=== PATIENT | female | born 1955 | race Two or more races ===

== ENCOUNTER 2020-01-24 11:37 | Inpatient (IN) | payer OTHER, MEDICAID ==
[~2020-01-24] VITALS: Ht 160 cm; Wt 70.3 kg
[2020-01-24 12:46] LABS: Basophils # (auto) 0.1 10 ^3/uL (0-0.2); Basophils % (auto) 0.6 % (0.0-2.0); Eosinophils # (auto) 0 10 ^3/uL (0-0.8); Eosinophils % (auto) 0.4 % (0.0-7.0); Hematocrit 46.7 % (36.0-46.0); Hemoglobin 15.5 g/dL (12.2-16.2); Lymphocytes # (auto) 1.1 10 ^3/uL (0.4-5.4); Lymphocytes % (auto) 12.2 % (10.0-50.0); Mean Corpuscular Hemoglobin 29.8 pg (28.0-32.0); Mean Corpuscular Hgb Conc. 33.3 g/dL (32.0-36.0); Mean Corpuscular Volume 89.4 fL (80.0-100.0); Monocytes # (auto) 0.5 10 ^3/uL (0-1.3); Monocytes % (auto) 5.4 % (0.0-12.0); Neutrophils # (auto) 7.5 10 ^3/uL (1.6-8.6); Neutrophils % (auto) 81.4 % (37.0-80.0); Nucleated Red Blood Cells % 0.1 %; Platelet Count (auto) 226 10^3/uL (140-450); Red Blood Cells 5.23 10^6/uL (4.0-5.20); Red Cell Distribution Width 14.2 % (11.8-14.3); White Blood Cell 9.2 10^3/uL (4.4-10.8)
[2020-01-24 12:55] LABS: Albumin 3.8 g/dL (3.4-5.0); Calcium 8.9 mg/dL (8.5-10.1); Potassium 3.4 mmol/L (3.5-5.1)
[2020-01-24 13:00] LABS: BUN/Creatinine Ratio 17.1; Bilirubin, Total 0.4 mg/dL (0.2-1.0); Total Protein 7.9 g/dL (6.4-8.2)
[2020-01-24 13:24] LABS: Urine Bacteria NONE SEEN /hpf (None Seen); Urine Blood TRACE /uL (Negative); Urine Specific Gravity 1.003 (1.001-1.035); Urine WBC <1 /hpf (0 - 5)
[2020-01-24] MEDS ORDERED: cloNIDine HCL 0.1 MG TAB PO ONE (13:30)
[2020-01-24] MEDS ORDERED: ASPirin-EC 81 mg tab PO ONE (14:30)
[2020-01-24] MEDS ORDERED: NITROGLYCERIN 0.4 MG SL TAB SL PRN (15:30)
[2020-01-24] MEDS ORDERED: HYDROcodone-ACET 5/325MG TAB PO PRN (15:30)
[2020-01-24] MEDS ORDERED: MORPHINE SULF INJ 2 MG/ML SYRINGE 1ML IV PRN ×2 (15:30)
[2020-01-24] MEDS ORDERED: ONDANSETRON HCL 4 MG/2 ML VIAL IV PRN (15:30)
[2020-01-24] MEDS ORDERED: POTASSIUM EFFERVESENT TAB 25 MEQ PO ONE (15:45)
--- NOTE | 2020-01-24 16:26 | NUR ---
Telemetry admit from [facility] admitted to Telemetry unit after SBAR received from Satish BLOUNT RN. Patient oriented to TANVI MEJIA RN primary RN, unit, 298 room,b bed, and unit policies regarding patient care and visiting hours. Patient now on continuous telemetry monitoring, tele box #65 and telemetry reading on arrival to unit is sr 73. Patient weighed by bedscale and encouraged to call if they need something. All questions and concerns addressed, patient verbalized understanding.
[2020-01-24 17:03] VITALS: BP 146/90
[2020-01-24] MEDS ORDERED: NIFE1TAB31 PO (17:39)
[2020-01-24] MEDS ORDERED: CHOL200029 PO (17:39)
[2020-01-24] MEDS ORDERED: FLUD0.1T2 PO (17:39)
[2020-01-24] MEDS ORDERED: ENAL2.5T PO (17:39)
[2020-01-24] MEDS ORDERED: HYDR10T PO (17:39)
[2020-01-24] MEDS ORDERED: PANT40TA2 PO (17:39)
--- NOTE | 2020-01-24 20:00 | NUR ---
Opening Shift Note Assumed care of patient, awake and alert. No S/S of distress/SOB or pain. Instructed on POC and to call for assist PRN, will continue to monitor for changes Q1hr and PRN.
[2020-01-24] MEDS: METOPROLOL TARTRATE 25 MG TAB PO SCH (21:55)
[2020-01-24] MEDS: ATORVASTATIN 20 MG TAB PO SCH (21:55)
[2020-01-24] MEDS: HYDROCORTISONE 10 MG TAB PO SCH (21:56)
[2020-01-24 22:43] VITALS: BP 155/98
[2020-01-24 22:48] VITALS: BP 155/98
[2020-01-25 05:14] VITALS: BP 150/91
--- NOTE | 2020-01-25 07:28 | NUR ---
Report given to Isidro Delgado, patient is resting no distress.
--- NOTE | 2020-01-25 07:35 | NUR ---
RECEIVED PATIENT FROM [facility] SHIFT RN, . PATIENT ALERT AND ORIENTED X4.. NO S/S OF DISTRESS, DENIES SOB AND PAIN AT THIS TIME. PLAN OF CARE DISCUSSED. BED IN LOW AND LOCKED POSITION WT 2 RAILS UP, CALL LIGHT AND PHONE WITHIN REACH. WILL CONTINUE TO MONITOR Q1H AND PRN.
[2020-01-25 08:00] VITALS: BP 140/90
[2020-01-25 09:00] VITALS: BP 140/90
[2020-01-25] MEDS ORDERED: PANTOPRAZOLE 40 MG TAB PO SCH (10:00)
[2020-01-25] MEDS ORDERED: cloNIDine HCL 0.1 MG TAB PO PRN (10:30)
[2020-01-25] MEDS: HYDROCORTISONE 10 MG TAB PO SCH ×2 (10:32→21:43)
[2020-01-25] MEDS: ASPirin-EC 81 mg tab PO SCH (10:33)
[2020-01-25] MEDS: METOPROLOL TARTRATE 25 MG TAB PO SCH ×2 (10:35→21:44)
[2020-01-25] MEDS: LISINOPRIL 10 MG TAB PO SCH (10:36)
[2020-01-25] MEDS: FLUDROCORTISONE ACETATE 0.1 MG TAB PO SCH (10:37)
[2020-01-25 13:02] VITALS: BP 160/95
[2020-01-25] MEDS: hydrALAZINE HCL 20 MG/ML VL IV PRN (13:36)
--- NOTE | 2020-01-25 13:36 | NUR ---
HYDRALAZINE 10MG (0.5ML) GIVEN TO PATIENT FOR BP OF 160/95. PATIENT RESTING IN BED, DENIES ANY DISCOMFORT AT THIS TIME. WILL CONTINUE TO MONITOR Q1HR AND PRN
[2020-01-25 17:00] VITALS: BP 142/89
[2020-01-25] MEDS: ATORVASTATIN 20 MG TAB PO SCH (21:43)
[2020-01-25] MEDS ORDERED: LISINOPRIL 20 MG TAB PO ONE (22:00)
--- NOTE | 2020-01-25 22:02 | NUR ---
Dr. Waller said to increase the lisinopril to 40mg.p.o daily start tomorrow.
--- NOTE | 2020-01-25 22:02 | NUR ---
at bedside. MD Dr. Waller at bedside for evaluation for cardiology consult. Further orders received and carried out, to give lisinopril 20mg.p.o x one now and Pepcid 20mg.p.o. b.i.d.
[2020-01-25] MEDS: FAMOTIDINE 20 MG TAB PO SCH (22:13)
[2020-01-25 22:58] VITALS: BP 155/90
[2020-01-26] MEDS: hydrALAZINE HCL 20 MG/ML VL IV PRN (05:35)
[2020-01-26 05:41] VITALS: BP 155/96
[2020-01-26 05:41] LABS: Basophils # (auto) 0.1 10 ^3/uL (0-0.2); Basophils % (auto) 0.8 % (0.0-2.0); Eosinophils # (auto) 0 10 ^3/uL (0-0.8); Eosinophils % (auto) 0.5 % (0.0-7.0); Hematocrit 42.2 % (36.0-46.0); Lymphocytes # (auto) 1.4 10 ^3/uL (0.4-5.4); Lymphocytes % (auto) 16.8 % (10.0-50.0); Mean Corpuscular Hgb Conc. 33.2 g/dL (32.0-36.0); Mean Corpuscular Volume 90.3 fL (80.0-100.0); Monocytes # (auto) 0.6 10 ^3/uL (0-1.3); Monocytes % (auto) 7.1 % (0.0-12.0); Neutrophils # (auto) 6.4 10 ^3/uL (1.6-8.6); Neutrophils % (auto) 74.8 % (37.0-80.0); Nucleated Red Blood Cells % 0.1 %; Platelet Count (auto) 209 10^3/uL (140-450); Red Blood Cells 4.67 10^6/uL (4.0-5.20); Red Cell Distribution Width 14.4 % (11.8-14.3); White Blood Cell 8.6 10^3/uL (4.4-10.8)
[2020-01-26 05:58] LABS: Calcium 8.6 mg/dL (8.5-10.1); Potassium 3.9 mmol/L (3.5-5.1)
[2020-01-26 06:06] LABS: BUN/Creatinine Ratio 21.7
--- NOTE | 2020-01-26 07:10 | NUR ---
Report given to Isidro De Dios , patient is resting no distress.
--- NOTE | 2020-01-26 08:00 | NUR ---
Opening Shift Note Assumed care of patient, awake, alert, and oriented. No S/S of distress/SOB or pain. Bed in lowest/locked position, bed rails up x2, call light within reach. Instructed on POC and to call for assist PRN. Will continue to monitor for changes Q1hr and PRN.
[2020-01-26 09:00] VITALS: BP 146/93
--- NOTE | 2020-01-26 09:30 | NUR ---
PAIN PATIENT C/O HEADACHE 12/08, [facility]. WILL MEDICATE PER MD ORDERS
[2020-01-26] MEDS: ACETAMINOPHEN 500 MG TAB PO PRN ×2 (09:43→21:31)
[2020-01-26] MEDS: ASPirin-EC 81 mg tab PO SCH (09:43)
[2020-01-26] MEDS: FAMOTIDINE 20 MG TAB PO SCH ×2 (09:44→21:32)
[2020-01-26] MEDS: HYDROCORTISONE 10 MG TAB PO SCH ×2 (09:44→21:32)
[2020-01-26] MEDS: FLUDROCORTISONE ACETATE 0.1 MG TAB PO SCH (09:44)
[2020-01-26] MEDS: METOPROLOL TARTRATE 25 MG TAB PO SCH (09:45)
[2020-01-26] MEDS: LISINOPRIL 20 MG TAB PO SCH (09:46)
[2020-01-26] MEDS: LISINOPRIL 10 MG TAB PO SCH (09:47)
[2020-01-26 13:00] VITALS: BP 146/76
--- NOTE | 2020-01-26 13:37 | NUR ---
MD ROUNDS DR HUNTER AT BEDSIDE DISCUSSING POC WITH PATIENT. NO NEW ORDER AT THIS TIME. WILL CONTINUE TO MONITOR
[2020-01-26] MEDS ORDERED: ACETAMINOPHEN 325 MG TAB PO PRN (13:45)
[2020-01-26 17:00] VITALS: BP 143/82
[2020-01-26 21:19] VITALS: BP 155/98
--- NOTE | 2020-01-26 21:31 | NUR ---
PAIN PATIETN S/O 8/ HEADACHE BUT REQUESTING TYLENOL 500MG PO PERSCRIBED. PATIENT VERBALIZED UNDERSTANDING NO QEUSTIONS ASKED. ADMINSITERED TYLENOL 500MG PO PRESCRIBED. WILL CONTINUE TO MONITOR PATIENT.
[2020-01-26] MEDS: ATORVASTATIN 20 MG TAB PO SCH (21:32)
[2020-01-26] MEDS: METOPROLOL TARTRATE 50 MG TAB PO SCH (21:33)
[2020-01-27 05:13] VITALS: BP 142/93
[2020-01-27] MEDS: ACETAMINOPHEN 500 MG TAB PO PRN (05:40)
[2020-01-27 05:49] LABS: Basophils # (auto) 0 10 ^3/uL (0-0.2); Basophils % (auto) 0.5 % (0.0-2.0); Eosinophils # (auto) 0 10 ^3/uL (0-0.8); Eosinophils % (auto) 0.2 % (0.0-7.0); Hematocrit 42.8 % (36.0-46.0); Hemoglobin 14.4 g/dL (12.2-16.2); Lymphocytes # (auto) 1.2 10 ^3/uL (0.4-5.4); Lymphocytes % (auto) 12.9 % (10.0-50.0); Mean Corpuscular Hemoglobin 30.4 pg (28.0-32.0); Mean Corpuscular Hgb Conc. 33.6 g/dL (32.0-36.0); Mean Corpuscular Volume 90.5 fL (80.0-100.0); Monocytes # (auto) 0.6 10 ^3/uL (0-1.3); Monocytes % (auto) 6.1 % (0.0-12.0); Neutrophils # (auto) 7.7 10 ^3/uL (1.6-8.6); Neutrophils % (auto) 80.3 % (37.0-80.0); Nucleated Red Blood Cells % 0.1 %; Platelet Count (auto) 199 10^3/uL (140-450); Red Blood Cells 4.74 10^6/uL (4.0-5.20); Red Cell Distribution Width 14.3 % (11.8-14.3); White Blood Cell 9.6 10^3/uL (4.4-10.8)
[2020-01-27 06:19] LABS: Potassium 4.2 mmol/L (3.5-5.1)
[2020-01-27 06:33] LABS: BUN/Creatinine Ratio 21.7; Calcium 8.5 mg/dL (8.5-10.1)
[2020-01-27] MEDS: FAMOTIDINE 20 MG TAB PO SCH (08:59)
[2020-01-27] MEDS: ASPirin-EC 81 mg tab PO SCH (08:59)
[2020-01-27] MEDS: METOPROLOL TARTRATE 50 MG TAB PO SCH (08:59)
[2020-01-27] MEDS: HYDROCORTISONE 10 MG TAB PO SCH (08:59)
[2020-01-27 09:00] VITALS: BP 163/94
[2020-01-27] MEDS: FLUDROCORTISONE ACETATE 0.1 MG TAB PO SCH (09:00)
[2020-01-27] MEDS: LISINOPRIL 20 MG TAB PO SCH (09:00)
[2020-01-27 13:04] VITALS: BP 128/74
[2020-01-27] MEDS ORDERED: ENAL20TA93 PO (13:50)
[2020-01-27] MEDS ORDERED: MET50T PO (13:50)
--- NOTE | 2020-01-27 16:00 | NUR ---
LAB TIP OF PATIENT'S RIGHT UPPER CHEST CENTRAL LINE SENT TO LAB FOR CULTURE PER DR GODDARD Addendum: 01/27/20 at 1639 by PETRA GIBBS RN RN WRONG PATIENTDave ISSA
--- NOTE | 2020-01-27 17:08 | NUR ---
Discharge instructions given as ordered. Encourage to follow up with PMD as instructed. All questions and concerns addressed. Patient verbalized understanding. Home medications held in Pharmacy returned to patient, and needed vaccines given. IV removed with catheter intact, pressure dressing applied. Telemetry unit returned to ICU. Patient taken to vehicle via wheelchair with all personal belongings, accompanied by staff . No distress noted at time of departure.
[2020-01-27 17:12] VITALS: BP 149/83
== END 2020-01-27 17:10 | disposition home or self-care (01) | DRG 281 ==
LOC: ER 11:37 → TELE 11:38 → TELE-WESTW 16:27
PROVIDERS: ADMIT Nurse Practitioner Acute Care; ATTEND Internal Medicine
DX: I16.1 Hypertensive emergency (principal); I21.A1 Myocardial infarction type 2; I50.32 Chronic diastolic (congestive) heart failure; E27.1 Primary adrenocortical insufficiency; E87.6 Hypokalemia; E78.5 Hyperlipidemia, unspecified; K21.9 Gastro-esophageal reflux disease without esophagitis; I11.0 Hypertensive heart disease with heart failure; Z79.52 Long term (current) use of systemic steroids; Z79.82 Long term (current) use of aspirin; Z79.899 Other long term (current) drug therapy; Z82.49 Family history of ischemic heart disease and other diseases of the circulatory system
CPT/HCPCS: 36415; 70450; 71045; 72125; 80048; 80053; 81001; 82088; 82533; 83735; 83880; 84443; 84484; 85025; 86141; 93005; 93306; G0378

== ENCOUNTER 2021-04-16 20:18 | Inpatient (IN) | payer OTHER, MEDICAID ==
[~2021-04-16] VITALS: Ht 160 cm; Wt 81.8 kg
[~2021-04-16 20:18] MED LIST: CHOL200029 PO; ENAL20TA93 PO; FLUD0.1T2 PO; HYDR10T PO; MET50T PO; PANT40TA2 PO
[2021-04-16 22:19] LABS: Basophils # (auto) 0.1 10 ^3/uL (0-0.2); Basophils % (auto) 0.9 % (0.0-2.0); Eosinophils # (auto) 0.1 10 ^3/uL (0-0.8); Eosinophils % (auto) 0.7 % (0.0-7.0); Hematocrit 44.8 % (36.0-46.0); Hemoglobin 15.4 g/dL (12.2-16.2); Lymphocytes # (auto) 1.5 10 ^3/uL (0.4-5.4); Lymphocytes % (auto) 17.1 % (10.0-50.0); Mean Corpuscular Hemoglobin 29.8 pg (28.0-32.0); Mean Corpuscular Hgb Conc. 34.5 g/dL (32.0-36.0); Mean Corpuscular Volume 86.4 fL (80.0-100.0); Monocytes # (auto) 0.8 10 ^3/uL (0-1.3); Monocytes % (auto) 8.6 % (0.0-12.0); Neutrophils # (auto) 6.4 10 ^3/uL (1.6-8.6); Neutrophils % (auto) 72.7 % (37.0-80.0); Nucleated Red Blood Cells % 0.1 %; Red Blood Cells 5.18 10^6/uL (4.0-5.20); Red Cell Distribution Width 14.3 % (11.8-14.3); White Blood Cell 8.8 10^3/uL (4.4-10.8)
[2021-04-16 22:37] LABS: Albumin 3.8 g/dL (3.4-5.0); BUN/Creatinine Ratio 16.4
[2021-04-16 22:40] LABS: Bilirubin, Total 0.3 mg/dL (0.2-1.0); Total Protein 7.4 g/dL (6.4-8.2)
[2021-04-16] MEDS ORDERED: SODIUM CHLORIDE 0.9% 1,000 ML IV ONE (23:00)
[2021-04-16] MEDS ORDERED: ASPirin 81 mg TAB PO ONE (23:15)
[2021-04-17 00:30] LABS: Urine WBC None Seen /hpf (0 - 5)
[2021-04-17 00:39] LABS: Urine Bacteria NONE SEEN /hpf (None Seen); Urine Blood Negative /uL (Negative); Urine Specific Gravity 1.001 (1.001-1.035)
[2021-04-17] MEDS ORDERED: POTASSIUM CHL 20 Meq TABLET PO ONE (01:00)
[2021-04-17] MEDS ORDERED: ACETAMINOPHEN 325 MG TAB PO PRN (01:30)
[2021-04-17] MEDS ORDERED: HYDROcodone-ACET 5/325MG TAB PO PRN (01:30)
[2021-04-17] MEDS ORDERED: hydrALAZINE HCL 20 MG/ML VL IV PRN (01:30)
[2021-04-17] MEDS ORDERED: NITROGLYCERIN 0.4 MG SL TAB SL PRN (01:30)
[2021-04-17] MEDS ORDERED: POTASSIUM CHL 20MEQ/100ML 100 ML IV ONE (01:30)
[2021-04-17] MEDS ORDERED: ONDANSETRON HCL 4 MG/2 ML VIAL IV PRN (01:30)
[2021-04-17] MEDS ORDERED: CHOLECALCIFEROL (VITD3) 2,000 UNIT CAP/TAB PO ONE (01:45)
[2021-04-17 04:20] VITALS: BP 136/84
[2021-04-17 05:00] VITALS: BP 136/84
[2021-04-17] MEDS ORDERED: AMLO-489 PO (05:10)
[2021-04-17 08:15] LABS: Basophils # (auto) 0 10 ^3/uL (0-0.2); Basophils % (auto) 0.6 % (0.0-2.0); Eosinophils # (auto) 0.1 10 ^3/uL (0-0.8); Eosinophils % (auto) 0.7 % (0.0-7.0); Hematocrit 39.9 % (36.0-46.0); Hemoglobin 13.6 g/dL (12.2-16.2); Lymphocytes # (auto) 1.6 10 ^3/uL (0.4-5.4); Lymphocytes % (auto) 19.7 % (10.0-50.0); Mean Corpuscular Hemoglobin 29.3 pg (28.0-32.0); Mean Corpuscular Hgb Conc. 34.1 g/dL (32.0-36.0); Mean Corpuscular Volume 86.1 fL (80.0-100.0); Monocytes # (auto) 0.6 10 ^3/uL (0-1.3); Monocytes % (auto) 7.2 % (0.0-12.0); Neutrophils # (auto) 5.8 10 ^3/uL (1.6-8.6); Neutrophils % (auto) 71.8 % (37.0-80.0); Red Blood Cells 4.64 10^6/uL (4.0-5.20); White Blood Cell 8.1 10^3/uL (4.4-10.8)
[2021-04-17 08:33] LABS: BUN/Creatinine Ratio 18.4; Potassium 3.7 mmol/L (3.5-5.1)
[2021-04-17 09:00] VITALS: BP 135/77
[2021-04-17] MEDS ORDERED: amLODIPine BESYLATE 5 MG TAB PO SCH (10:00)
[2021-04-17] MEDS ORDERED: HYDROCORTISONE 10 MG TAB PO SCH (10:00)
[2021-04-17] MEDS ORDERED: METOPROLOL TARTRATE 50 MG TAB PO SCH (10:00)
[2021-04-17] MEDS ORDERED: FLUDROCORTISONE ACETATE 0.1 MG TAB PO SCH (10:00)
[2021-04-17] MEDS ORDERED: ENALAPRIL MALEATE 10 MG TAB PO SCH (10:00)
[2021-04-17] MEDS: CHOLECALCIFEROL (VITD3) 2,000 UNIT CAP/TAB PO SCH ×2 (10:32→14:41)
[2021-04-17 13:00] VITALS: BP 133/78
[2021-04-17 18:04] VITALS: BP 135/77
[2021-04-18 10:40] LABS: Free T4 (Free Thyroxine) 0.91 ng/dL (0.89-1.76); T3 Total 0.92 ng/mL (0.60-1.81)
[2021-04-18 10:41] LABS: Free T3 3.17 pg/mL (2.3-4.2)
== END 2021-04-17 18:50 | disposition home or self-care (01) | DRG 281 ==
LOC: ER 20:23 → TELE 04-17 01:25 → TELE-EAST 04-17 03:20
PROVIDERS: ADMIT Internal Medicine; ATTEND Internal Medicine
DX: I21.4 Non-ST elevation (NSTEMI) myocardial infarction (principal); E27.1 Primary adrenocortical insufficiency; R51.9 Headache, unspecified; I10 Essential (primary) hypertension; Z20.822 Contact with and (suspected) exposure to COVID-19; R77.8 Other specified abnormalities of plasma proteins; R79.89 Other specified abnormal findings of blood chemistry; R94.6 Abnormal results of thyroid function studies; E78.5 Hyperlipidemia, unspecified; E87.6 Hypokalemia; K21.9 Gastro-esophageal reflux disease without esophagitis; Z82.49 Family history of ischemic heart disease and other diseases of the circulatory system; Z88.0 Allergy status to penicillin; Z98.51 Tubal ligation status; Z83.3 Family history of diabetes mellitus; Z79.899 Other long term (current) drug therapy; I16.0 Hypertensive urgency
CPT/HCPCS: 36415; 70450; 71045; 80048; 80053; 81001; 83605; 83735; 83880; 84439; 84443; 84480; 84481; 84484; 85025; 87426; 93005; 93306; 96360; G0378; J3480

== ENCOUNTER 2021-11-02 09:03 | Inpatient (IN) | payer OTHER, MEDICAID ==
[~2021-11-02] VITALS: Ht 160 cm; Wt 73.1 kg
[~2021-11-02 09:03] MED LIST changes: +AMLO-489 PO; -PANT40TA2 PO
[2021-11-02 09:34] LABS: Basophils # (auto) 0 10 ^3/uL (0-0.2); Basophils % (auto) 0.6 % (0.0-2.0); Eosinophils # (auto) 0.1 10 ^3/uL (0-0.8); Eosinophils % (auto) 0.7 % (0.0-7.0); Hematocrit 45.6 % (36.0-46.0); Hemoglobin 15.3 g/dL (12.2-16.2); Lymphocytes # (auto) 2.1 10 ^3/uL (0.4-5.4); Lymphocytes % (auto) 28.2 % (10.0-50.0); Mean Corpuscular Hemoglobin 29.2 pg (28.0-32.0); Mean Corpuscular Hgb Conc. 33.4 g/dL (32.0-36.0); Mean Corpuscular Volume 87.4 fL (80.0-100.0); Monocytes # (auto) 0.6 10 ^3/uL (0-1.3); Monocytes % (auto) 8.6 % (0.0-12.0); Neutrophils # (auto) 4.6 10 ^3/uL (1.6-8.6); Neutrophils % (auto) 61.9 % (37.0-80.0); Nucleated Red Blood Cells % 0.1 %; Red Blood Cells 5.22 10^6/uL (4.0-5.20); Red Cell Distribution Width 14.2 % (11.8-14.3); White Blood Cell 7.4 10^3/uL (4.4-10.8)
[2021-11-02 09:58] LABS: Potassium 3.3 mmol/L (3.5-5.1)
[2021-11-02 10:08] LABS: Albumin 3.8 g/dL (3.4-5.0); BUN/Creatinine Ratio 12.2; Bilirubin, Total 0.4 mg/dL (0.2-1.0); Calcium 9.1 mg/dL (8.5-10.1); Total Protein 7.4 g/dL (6.4-8.2)
[2021-11-02 10:08] LABS: Urine Bacteria FEW /hpf (None Seen); Urine Blood Negative /uL (Negative); Urine Specific Gravity 1.008 (1.001-1.035); Urine WBC 1 /hpf (0 - 5)
[2021-11-02] MEDS ORDERED: POTASSIUM EFFERVESENT TAB 25 MEQ PO ONE (10:45)
[2021-11-02] MEDS ORDERED: ASPirin 81 mg TAB PO ONE (10:45)
[2021-11-02] MEDS ORDERED: cloNIDine HCL 0.1 MG TAB PO ONE (10:45)
[2021-11-02] MEDS ORDERED: NITROGLYCERIN 0.4 MG SL TAB SL PRN (14:15)
[2021-11-02] MEDS ORDERED: MORPHINE SULFATE INJECTION 2 MG/ML SYRG IV PRN (14:15)
[2021-11-02] MEDS ORDERED: hydrALAZINE HCL 20 MG/ML VL IV ONE (16:30)
[2021-11-02] MEDS ORDERED: hydrALAZINE HCL 20 MG/ML VL IV PRN (16:30)
[2021-11-02 16:43] VITALS: BP 144/85
[2021-11-02] MEDS ORDERED: METO-289 PO (16:58)
[2021-11-02] MEDS ORDERED: PANT1INJ3 PO (16:58)
[2021-11-02] MEDS ORDERED: PANT40TA2 PO (16:59)
[2021-11-02 17:00] VITALS: BP 144/85
[2021-11-02] MEDS ORDERED: METOPROLOL SUCCINATE XL 50 MG TAB PO ONE (18:15)
[2021-11-02] MEDS: ACETAMINOPHEN 325 MG TAB PO PRN (18:47)
[2021-11-02] MEDS ORDERED: SODIUM CHLORIDE 0.9% 1,000 ML IV SCH (19:45)
[2021-11-02] MEDS ORDERED: LABETALOL HCL 5 MG/ML 4ML SYRINGE IV PRN (19:45)
[2021-11-02 20:00] VITALS: BP 134/80
[2021-11-02] MEDS ORDERED: MORPHINE SULFATE 4 MG/ML SYR/VIAL IV PRN (20:00)
[2021-11-02] MEDS ORDERED: ONDANSETRON HCL 4 MG/2 ML VIAL IV PRN ×2 (20:00→22:45)
[2021-11-02] MEDS ORDERED: DOCUSATE SOD 100 MG CAP PO PRN (20:00)
[2021-11-02 20:48] LABS: Cholesterol 173 mg/dL (< 200)
[2021-11-02 20:50] LABS: Creatine Kinase IFCC 32 U/L (26-192); HDL Cholesterol 43 mg/dL (40-59); LDL Cholesterol 104 mg/dL (< 100); Triglycerides 171 mg/dL (< 150)
[2021-11-02 20:54] LABS: Alcohol, Urine < 3.0 mg/dL (0-10); Amphetamine Screen, Urine NEGATIVE (NEGATIVE); Barbiturate Scree,Urine NEGATIVE (NEGATIVE); Benzodiazephine Screen, Urine NEGATIVE (NEGATIVE); Cannabinoid Screen, Urine NEGATIVE (NEGATIVE); Cocaine Screen, Urine NEGATIVE (NEGATIVE); Opiate Scree,Urine NEGATIVE (NEGATIVE); Phencyclidine Screen, Urine NEGATIVE (NEGATIVE)
[2021-11-02 22:00] VITALS: BP 134/80
[2021-11-02] MEDS ORDERED: HYDROCORTISONE 10 MG TAB PO SCH (22:00)
[2021-11-02] MEDS ORDERED: ENOXAPARIN SOD 40 MG/0.4 ML SYRINGE SC SCH (22:00)
[2021-11-02] MEDS ORDERED: ATORVASTATIN 20 MG TAB PO SCH (22:00)
[2021-11-02] MEDS ORDERED: NIFEdipine ER 30 MG TAB PO ONE (22:30)
[2021-11-02] MEDS ORDERED: levoFLOXacin 500MG 100 ML IV ONE (22:30)
[2021-11-02] MEDS ORDERED: FAMOTIDINE (10MG/ML) 2ML VL IV ONE (22:30)
[2021-11-02] MEDS ORDERED: POTASSIUM CHL 20 Meq TABLET PO ONE (22:30)
[2021-11-02] MEDS: RIVAROXABAN 10 MG TAB PO SCH (23:27)
[2021-11-03 05:00] VITALS: BP 122/72
[2021-11-03 07:13] LABS: Basophils # (auto) 0.1 10 ^3/uL (0-0.2); Basophils % (auto) 1.2 % (0.0-2.0); Eosinophils # (auto) 0.1 10 ^3/uL (0-0.8); Eosinophils % (auto) 1.4 % (0.0-7.0); Hematocrit 43.1 % (36.0-46.0); Hemoglobin 14.2 g/dL (12.2-16.2); Lymphocytes # (auto) 1.7 10 ^3/uL (0.4-5.4); Lymphocytes % (auto) 26.7 % (10.0-50.0); Mean Corpuscular Hemoglobin 28.8 pg (28.0-32.0); Mean Corpuscular Volume 87.4 fL (80.0-100.0); Monocytes # (auto) 0.6 10 ^3/uL (0-1.3); Monocytes % (auto) 9.9 % (0.0-12.0); Neutrophils # (auto) 3.8 10 ^3/uL (1.6-8.6); Neutrophils % (auto) 60.8 % (37.0-80.0); Nucleated Red Blood Cells % 0.2 %; Red Blood Cells 4.93 10^6/uL (4.0-5.20); White Blood Cell 6.2 10^3/uL (4.4-10.8)
[2021-11-03 07:16] LABS: INR 1.25 (0.9-1.15); Partial Thromboplastin Time 36.5 sec (23.6-33.0)
[2021-11-03 07:22] LABS: Potassium 3.7 mmol/L (3.5-5.1)
[2021-11-03 07:30] LABS: Albumin 3.1 g/dL (3.4-5.0); BUN/Creatinine Ratio 11.5; Bilirubin, Total 0.5 mg/dL (0.2-1.0); Calcium 8.7 mg/dL (8.5-10.1); Magnesium 3.2 mg/dL (1.6-2.6); Phosphorus 3.2 mg/dL (2.5-4.90); Total Protein 6.4 g/dL (6.4-8.2); Uric Acid 4.4 mg/dL (2.6-6.0)
[2021-11-03 08:00] VITALS: BP 134/80
[2021-11-03 09:00] VITALS: BP 149/92
[2021-11-03] MEDS ORDERED: GADOTERATE MEG 7.5 MMOL/15ml INJ (0.5MMOL/ml) IV ONE (09:49)
[2021-11-03] MEDS: RIVAROXABAN 10 MG TAB PO SCH ×2 (10:00→21:29)
[2021-11-03] MEDS ORDERED: FLUDROCORTISONE ACETATE 0.1 MG TAB PO SCH (10:00)
[2021-11-03] MEDS ORDERED: POTASSIUM CHL 20 Meq TABLET PO SCH (10:00)
[2021-11-03] MEDS: ASPirin 81 mg TAB PO SCH (11:00)
[2021-11-03] MEDS: CHOLECALCIFEROL (VITD3) 2,000 UNIT CAP/TAB PO SCH (11:00)
[2021-11-03] MEDS: ACETAMINOPHEN 325 MG TAB PO PRN ×2 (12:01→23:00)
[2021-11-03 13:00] VITALS: BP 144/89
[2021-11-03 16:56] VITALS: BP 137/94
[2021-11-03 21:00] VITALS: BP 156/96
[2021-11-03] MEDS ORDERED: NIFEdipine ER 30 MG TAB PO SCH (22:00)
[2021-11-03] MEDS ORDERED: METOPROLOL SUCCINATE XL 50 MG TAB PO SCH (22:00)
[2021-11-03] MEDS ORDERED: levoFLOXacin 500MG 100 ML IV SCH (22:00)
[2021-11-03] MEDS ORDERED: FAMOTIDINE (10MG/ML) 2ML VL IV SCH (22:00)
[2021-11-03] MEDS ORDERED: PANTOPRAZOLE 40 MG TAB PO SCH (22:00)
[2021-11-04 05:00] VITALS: BP 122/82
[2021-11-04 09:16] VITALS: BP 134/98
[2021-11-04] MEDS: ASPirin 81 mg TAB PO SCH (09:45)
[2021-11-04] MEDS: CHOLECALCIFEROL (VITD3) 2,000 UNIT CAP/TAB PO SCH (09:46)
[2021-11-04] MEDS: RIVAROXABAN 10 MG TAB PO SCH (09:47)
[2021-11-04] MEDS: ACETAMINOPHEN 325 MG TAB PO PRN (09:59)
[2021-11-04 13:00] VITALS: BP 118/80
[2021-11-04 13:09] VITALS: BP 134/98
== END 2021-11-04 15:00 | disposition home or self-care (01) | DRG 78 ==
LOC: ER 09:03 → TELE 14:08 → TELE-WESTW 15:40
PROVIDERS: ADMIT Hospitalist; ATTEND Internal Medicine
DX: I67.4 Hypertensive encephalopathy (principal); I16.1 Hypertensive emergency; N39.0 Urinary tract infection, site not specified; E27.40 Unspecified adrenocortical insufficiency; E27.1 Primary adrenocortical insufficiency; E88.81 Metabolic syndrome and other insulin resistance; F40.240 Claustrophobia; D35.2 Benign neoplasm of pituitary gland; E66.01 Morbid (severe) obesity due to excess calories; E87.6 Hypokalemia; Z20.822 Contact with and (suspected) exposure to COVID-19; E78.5 Hyperlipidemia, unspecified; K21.9 Gastro-esophageal reflux disease without esophagitis; H53.8 Other visual disturbances; R51.9 Headache, unspecified; I10 Essential (primary) hypertension; Z82.0 Family history of epilepsy and other diseases of the nervous system; Z68.28 Body mass index [BMI] 28.0-28.9, adult; Z88.3 Allergy status to other anti-infective agents; Z82.49 Family history of ischemic heart disease and other diseases of the circulatory system; Z83.3 Family history of diabetes mellitus; Z79.899 Other long term (current) drug therapy; Z88.0 Allergy status to penicillin
CPT/HCPCS: 36415; 70553; 80053; 80061; 80307; 81001; 82024; 82088; 82306; 82550; 83036; 83735; 83880; 84100; 84146; 84244; 84443; 84484; 84550; 85025; 85379; 85610; 85730; 87040; 87086; 87426; 93005; 93306; G0378; J1956; J3490

== ENCOUNTER 2022-02-16 10:03 | Emergency (ER) | payer OTHER, MEDICAID ==
[~2022-02-16] VITALS: Ht 160 cm; Wt 68.9 kg
[~2022-02-16 10:03] MED LIST changes: -AMLO-489 PO; -FLUD0.1T2 PO; -MET50T PO; +METO-289 PO; +PANT40TA2 PO
[2022-02-16 10:04] VITALS: BP 136/102
[2022-02-16] MEDS ORDERED: ACETAMINOPHEN 500 MG TAB PO ONE (11:00)
[2022-02-16] MEDS ORDERED: ACET-1080 PO (12:13)
[2022-02-16] MEDS ORDERED: LEVO500T31 PO (12:13)
[2022-02-16] MEDS ORDERED: PRED20TA2 PO (12:18)
== END 2022-02-16 12:23 | disposition home or self-care (01) ==
LOC: ER 10:03
DX: J01.90 Acute sinusitis, unspecified (principal); M50.30 Other cervical disc degeneration, unspecified cervical region
CPT/HCPCS: 70450; 72125

== ENCOUNTER 2023-01-30 11:35 | Inpatient (IN) | payer OTHER, MEDICAID ==
[~2023-01-30] VITALS: Ht 160 cm; Wt 69.0 kg
[~2023-01-30 11:35] MED LIST changes: +ACET-1080 PO; +LEVO500T31 PO; +PRED20TA2 PO
[2023-01-30] MEDS ORDERED: SODIUM CHLORIDE 0.9% 500 ML IV ONE (12:00)
[2023-01-30 12:25] LABS: Basophils # (auto) 0.1 10 ^3/uL (0-0.2); Basophils % (auto) 0.8 % (0.0-2.0); Eosinophils # (auto) 0.1 10 ^3/uL (0-0.8); Eosinophils % (auto) 0.6 % (0.0-7.0); Hemoglobin 15.1 g/dL (12.2-16.2); Lymphocytes # (auto) 1.4 10 ^3/uL (0.4-5.4); Lymphocytes % (auto) 12.7 % (10.0-50.0); Mean Corpuscular Hgb Conc. 33.6 g/dL (32.0-36.0); Mean Corpuscular Volume 86.4 fL (80.0-100.0); Monocytes # (auto) 0.8 10 ^3/uL (0-1.3); Monocytes % (auto) 6.9 % (0.0-12.0); Nucleated Red Blood Cells % 0.1 %; Red Cell Distribution Width 14.4 % (11.8-14.3); White Blood Cell 11.3 10^3/uL (4.4-10.8)
[2023-01-30 12:43] LABS: Calcium 9.8 mg/dL (8.5-10.1); Magnesium 2.3 mg/dL (1.6-2.6)
[2023-01-30 12:48] LABS: BUN/Creatinine Ratio 17.3 (10.0-20.0); Bilirubin, Total 0.5 mg/dL (0.2-1.0); Total Protein 7.2 g/dL (6.4-8.2)
[2023-01-30] MEDS ORDERED: HYDROcodone-ACET 5/325MG TAB PO PRN (17:15)
[2023-01-30] MEDS ORDERED: MORPHINE SULFATE INJ 2 MG/ml SYRG IV PRN (17:15)
[2023-01-30] MEDS: ACETAMINOPHEN 325 MG TAB PO PRN (20:21)
[2023-01-30] MEDS: SODIUM CHLORIDE 0.9% 1,000 ML IV SCH (20:22)
[2023-01-30] MEDS ORDERED: ENALAPRIL MALEATE 10 MG TAB PO SCH (22:00)
[2023-01-30] MEDS: METOPROLOL SUCCINATE XL 50 MG TAB PO SCH (23:06)
[2023-01-31 03:16] VITALS: BP_SYST 117; BP_DIAS 56; BP_DIAS 66
[2023-01-31] MEDS ORDERED: NIFE1TAB30 PO (04:29)
[2023-01-31] MEDS ORDERED: ENAL2.5T7 PO (04:30)
[2023-01-31 05:14] VITALS: BP 117/66
[2023-01-31] MEDS: SODIUM CHLORIDE 0.9% 1,000 ML IV SCH ×2 (06:35→20:03)
[2023-01-31 06:46] LABS: Urine Bacteria NONE SEEN /hpf (None Seen); Urine Blood Negative /uL (Negative); Urine Mucus FEW (None Seen); Urine Specific Gravity 1.014 (1.001-1.035); Urine WBC 2 /hpf (0 - 5)
[2023-01-31 07:38] LABS: Basophils # (auto) 0.1 10 ^3/uL (0-0.2); Basophils % (auto) 1.3 % (0.0-2.0); Eosinophils # (auto) 0.1 10 ^3/uL (0-0.8); Eosinophils % (auto) 1.3 % (0.0-7.0); Hematocrit 40.1 % (36.0-46.0); Hemoglobin 13.4 g/dL (12.2-16.2); Lymphocytes # (auto) 2.2 10 ^3/uL (0.4-5.4); Lymphocytes % (auto) 26.1 % (10.0-50.0); Mean Corpuscular Hemoglobin 29.3 pg (28.0-32.0); Mean Corpuscular Hgb Conc. 33.4 g/dL (32.0-36.0); Mean Corpuscular Volume 87.8 fL (80.0-100.0); Monocytes # (auto) 0.8 10 ^3/uL (0-1.3); Monocytes % (auto) 9.3 % (0.0-12.0); Neutrophils # (auto) 5.3 10 ^3/uL (1.6-8.6); Red Blood Cells 4.57 10^6/uL (4.0-5.20); Red Cell Distribution Width 14.4 % (11.8-14.3); White Blood Cell 8.5 10^3/uL (4.4-10.8)
[2023-01-31 07:50] LABS: Albumin 3.4 g/dL (3.4-5.0); Calcium 8.5 mg/dL (8.5-10.1)
[2023-01-31 07:55] LABS: Bilirubin, Total 0.5 mg/dL (0.2-1.0); Total Protein 6.4 g/dL (6.4-8.2)
[2023-01-31 08:55] VITALS: BP 124/74
[2023-01-31] MEDS: METOPROLOL SUCCINATE XL 50 MG TAB PO SCH (09:02)
[2023-01-31] MEDS: PANTOPRAZOLE 40 MG TAB PO SCH (09:02)
[2023-01-31] MEDS ORDERED: ENOXAPARIN SOD 40 MG/0.4 ML SYRINGE SC SCH (10:00)
[2023-01-31 12:30] VITALS: BP 137/64
[2023-01-31] MEDS ORDERED: HYDROCORTISONE 10 MG TAB PO ONE (13:15)
[2023-01-31] MEDS ORDERED: LORazepam 2MG/ML-1ML VIAL IV ONE (13:15)
[2023-01-31] MEDS: ACETAMINOPHEN 325 MG TAB PO PRN ×2 (14:47→22:00)
[2023-01-31 16:56] VITALS: BP 124/72
[2023-01-31] MEDS: HYDROCORTISONE 10 MG TAB PO SCH (21:55)
[2023-01-31 22:00] VITALS: BP 150/85
[2023-01-31] MEDS ORDERED: METOPROLOL TARTRATE 25 MG TAB PO ONE (22:30)
[2023-02-01 04:43] VITALS: BP 125/75
[2023-02-01 06:09] LABS: Anion Gap 7 (5-15); BUN/Creatinine Ratio 13.1 (10.0-20.0); Blood Urea Nitrogen 11 mg/dL (7-18); Calcium 8.8 mg/dL (8.5-10.1); Carbon Dioxide 21 mmol/L (21-32); Chloride 112 mmol/L (98-107); GFR African American 86 mL/min; GFR Non-African American 71 mL/min; Glucose 104 mg/dL (74-106); Potassium 4.1 mmol/L (3.5-5.1); Sodium 140 mmol/L (136-145)
[2023-02-01 06:11] LABS: Basophils # (auto) 0 10 ^3/uL (0-0.2); Basophils % (auto) 0.6 % (0.0-2.0); Eosinophils # (auto) 0 10 ^3/uL (0-0.8); Eosinophils % (auto) 0.6 % (0.0-7.0); Hematocrit 39.5 % (36.0-46.0); Hemoglobin 13.4 g/dL (12.2-16.2); Lymphocytes # (auto) 1.5 10 ^3/uL (0.4-5.4); Lymphocytes % (auto) 18.5 % (10.0-50.0); Mean Corpuscular Hemoglobin 29.5 pg (28.0-32.0); Mean Corpuscular Hgb Conc. 33.8 g/dL (32.0-36.0); Mean Corpuscular Volume 87.3 fL (80.0-100.0); Monocytes # (auto) 0.5 10 ^3/uL (0-1.3); Monocytes % (auto) 6.4 % (0.0-12.0); Neutrophils # (auto) 5.8 10 ^3/uL (1.6-8.6); Neutrophils % (auto) 73.9 % (37.0-80.0); Nucleated Red Blood Cells % 0.2 %; Red Blood Cells 4.53 10^6/uL (4.0-5.20); White Blood Cell 7.9 10^3/uL (4.4-10.8)
[2023-02-01 08:00] VITALS: BP 152/81
[2023-02-01 09:00] VITALS: BP 152/81
[2023-02-01] MEDS: SODIUM CHLORIDE 0.9% 1,000 ML IV SCH (09:15)
[2023-02-01] MEDS: PANTOPRAZOLE 40 MG TAB PO SCH (10:32)
[2023-02-01] MEDS: ACETAMINOPHEN 325 MG TAB PO PRN ×2 (10:32→17:58)
[2023-02-01] MEDS ORDERED: NIFEdipine ER 30 MG TAB PO ONE (12:30)
[2023-02-01] MEDS ORDERED: cefTRIAXone 1GM/50ML D5W 50 ML IV ONE ×2 (12:30→13:00)
[2023-02-01] MEDS ORDERED: ENALAPRIL MALEATE 2.5 MG TAB PO ONE (12:30)
[2023-02-01] MEDS: HYDROCORTISONE 10 MG TAB PO SCH ×2 (12:41→22:23)
[2023-02-01 13:00] VITALS: BP_SYST 154; BP_SYST 155; BP_DIAS 88; BP_DIAS 92
[2023-02-01 16:40] VITALS: BP 135/74
[2023-02-01 22:00] VITALS: BP 120/75
[2023-02-01] MEDS: METOPROLOL TARTRATE 50 MG TAB PO SCH (22:23)
[2023-02-02 05:00] VITALS: BP 124/74
[2023-02-02 08:00] VITALS: BP 134/77
[2023-02-02 08:42] VITALS: BP 134/77
[2023-02-02] MEDS ORDERED: cefTRIAXone 1GM/50ML D5W 50 ML IV SCH (09:00)
[2023-02-02] MEDS ORDERED: NIFEdipine ER 30 MG TAB PO SCH (10:00)
[2023-02-02] MEDS ORDERED: ENALAPRIL MALEATE 2.5 MG TAB PO SCH (10:00)
[2023-02-02] MEDS: METOPROLOL TARTRATE 50 MG TAB PO SCH (11:08)
[2023-02-02] MEDS: PANTOPRAZOLE 40 MG TAB PO SCH (11:09)
[2023-02-02] MEDS: HYDROCORTISONE 10 MG TAB PO SCH (11:10)
[2023-02-02] MEDS ORDERED: LEVO500T31 PO (12:43)
[2023-02-02 12:57] VITALS: BP 147/79
[2023-02-02 13:45] VITALS: BP 147/79
== END 2023-02-02 13:58 | disposition home or self-care (01) | DRG 644 ==
LOC: ER 11:35 → OVERFLOW 17:04 → WEST WING 01-31 03:09
PROVIDERS: ADMIT Nurse Practitioner Family; ATTEND Internal Medicine
DX: E27.1 Primary adrenocortical insufficiency (principal); N39.0 Urinary tract infection, site not specified; K21.9 Gastro-esophageal reflux disease without esophagitis; I10 Essential (primary) hypertension; Z20.822 Contact with and (suspected) exposure to COVID-19; E78.5 Hyperlipidemia, unspecified; E03.9 Hypothyroidism, unspecified; Z88.0 Allergy status to penicillin; Z82.49 Family history of ischemic heart disease and other diseases of the circulatory system
CPT/HCPCS: 36415; 70553; 71046; 80048; 80053; 81001; 82306; 82607; 82962; 83735; 84443; 84484; 85025; 87040; 87426; 93005; 96360; G0378; J0696

== ENCOUNTER 2024-08-12 12:32 | Emergency (ER) | payer OTHER, MEDICAID ==
[~2024-08-12] VITALS: Ht 160 cm; Wt 75.0 kg
[~2024-08-12 12:32] MED LIST changes: +ENAL1TAB42 PO; -ENAL20TA93 PO; +NIFE1TAB30 PO
--- NOTE | 2024-08-12 13:30 | ED.PDOC ---
HPI Comments 51 year old presents for evaluation regarding her elevated blood pressure Reports she was diagnosed years ago. Takes metropolol 100 mg daily, nefedipine 30 mg daily, Valsartan 80 mg Takes medications as directed Reports BP has been in the 120s and been controlled but this morning woke up with a BP of 180/100 Then she took clonidine 0.1 mg and BP 170s so she called her nurse and was advided to visit nearest ER In triage BP was 158/96 Patient feels well and in usual state of health. Chief Complaint: High Blood Pressure Time Seen by MD: 13:07 Primary Care Provider: MARIYA Reviewed Notes: Nurses Notes, Medications, Allergies Allergies: Coded Allergies: Penicillins (Verified Allergy, Unknown, 09/07/15) Home Meds Active Scripts Levofloxacin (Levaquin) 500 Mg Tab, 500 MG PO DAILY for 5 Days, #5 TAB Prov:GERI MAE MD 02/02/23 Prednisone (Prednisone) 20 Mg Tab, 60 MG PO DAILY, #15 MG Prov:STELLA SHEIKH 02/16/22 Levofloxacin (Levaquin) 500 Mg Tab, 500 MG PO DAILY for 10 Days, #10 TAB Prov:STELLA SHEIKH 02/16/22 Acetaminophen (Tylenol 8 Hour Arthritis) 650 Mg Tab, 650 MG PO TID, #30 TAB Prov:STELLA SHEIKH 02/16/22 Reported Medications Enalapril Maleate (Enalapril Maleate) 2.5 Mg Tab, 2.5 MG PO DAILY for 30 Days, MG 01/31/23 Nifedipine (Nifedipine Er) 60 Mg Tab, 60 MG PO DAILY, TAB 01/31/23 Pantoprazole Sodium Sesquihydr (Protonix) 40 Mg Tab, 40 MG PO DAILY, #30 TAB 11/02/21 Metoprolol Succinate (Metoprolol Succinate Er) 50 Mg Tab, 50 MG PO BID, TAB 11/02/21 Hydrocortisone Base (CORTEF) 10 Mg Tab, 20 MG PO BID, TAB 01/24/20 Cholecalciferol (VITAMIN D3) 2,000 Unit Chw, 2000 UNIT PO, TAB.CHEW 01/24/20 Information Source: Patient Mode of Arrival: EMS Past Medical History PAST MEDICAL HISTORY: GERD, High Lipids, HTN, Thyroid Surgical History: BTL NURSE LICENSED PRACTICAL History: No Pertinent NURSE LICENSED PRACTICAL History Family History Family History: Reviewed,noncontributory to illness, Family hx of HTN Social History Smoker: Non-Smoker Alcohol: Denies ETOH Use Drugs: Denies Drug Use Lives In: Home All Other Systems: Reviewed and Negative (Per HPI) Physical Exam General Appearance: No Apparent Distress, Normal HEENT: Normal ENT Inspection, Pharynx Normal, TMs Normal Neck: Full Range of Motion, Non-Tender, Normal, Normal Inspection Respiratory: Chest Non-Tender, Lungs Clear, No Accessory Muscle Use, No Respiratory Distress, Normal Breath Sounds Cardiovascular: No Edema, No JVD, No Murmur, No Gallop, Normal Peripheral Pulses, Regular Rate/Rhythm Breast Exam: Deferred Gastrointestinal: No Organomegaly, Non Tender, No Pulsatile Mass, Normal Bowel Sounds, Soft Genitalia: Deferred Pelvic: Deferred Rectal: Deferred Extremities: No calf tenderness, Normal capillary refill, Normal inspection, Normal range of motion, Non-tender, No pedal edema Musculoskeletal : Apperance: Normal Neurologic: Alert, wastewater treatment engineer II-XII nml as Tested, No Motor Deficits, Normal Affect, Normal Mood, No Sensory Deficits Cerebellar Function: Normal Reflexes: Normal Skin: Dry, Normal Color, Warm Lymphatic: No Adenopathy Was a procedure done? Was a procedure done?: No CP Differential Dx Differential Diagnosis: Other Differential Diagnosis: CHF, Medical NonCompliance X-Ray, Labs, Meds, VS Vital Signs Date Time Temp Pulse Resp B/P (MAP) Pulse Ox O2 Delivery O2 Flow Rate FiO2 08/12/24 14:47 97.7 82 16 142/87 (105) 99 97.7 08/12/24 13:20 98.0 65 16 158/96 (116) 96 98.0 08/12/24 13:20 65 18 98 Room Air 08/12/24 12:45 98.0 6 18 152/91 (111) 95 Lab Test 08/12/24 13:37 Range/Units White Blood Count 9.9 4.4-10.8 10^3/uL Red Blood Count 5.00 4.0-5.20 10^6/uL Hemoglobin 14.5 12.2-16.2 g/dL Hematocrit 43.3 36.0-46.0 % Mean Corpuscular Volume 86.5 80.0-100.0 fL Mean Corpuscular Hemoglobin 29.0 28.0-32.0 pg Mean Corpuscular Hemoglobin Concent 33.5 32.0-36.0 g/dL Red Cell Distribution Width 14.8 H 11.8-14.3 % Platelet Count 192 140-450 10^3/uL Mean Platelet Volume 9.3 6.9-10.8 fL Neutrophils (%) (Auto) 81.3 H 37.0-80.0 % Lymphocytes (%) (Auto) 13.3 10.0-50.0 % Monocytes (%) (Auto) 4.5 0.0-12.0 % Eosinophils (%) (Auto) 0.3 0.0-7.0 % Basophils (%) (Auto) 0.6 0.0-2.0 % Neutrophils # (Auto) 8.0 1.6-8.6 10 ^3/uL Lymphocytes # (Auto) 1.3 0.4-5.4 10 ^3/uL Monocytes # (Auto) 0.4 0-1.3 10 ^3/uL Eosinophils # (Auto) 0 0-0.8 10 ^3/uL Basophils # (Auto) 0.1 0-0.2 10 ^3/uL Nucleated Red Blood Cells 0.0 % Sodium Level 140 136-145 mmol/L Potassium Level 3.8 3.5-5.1 mmol/L Chloride Level 108 H 98-107 mmol/L Carbon Dioxide Level 29 20-31 mmol/L Anion Gap 3 L 5-15 Blood Urea Nitrogen 10 9-23 mg/dL Creatinine 0.80 0.550-1.02 mg/dL Glomerular Filtration Rate Calc 79 >90 mL/min BUN/Creatinine Ratio 12.5 10.0-20.0 Serum Glucose 114 H 74-106 mg/dL Calcium Level 9.6 8.7-10.4 mg/dL X-Ray, Labs, Meds, VS Comment Inform patient of their elevated blood pressure Today discussed importance of regular exercise Sodium restriction DASH diet Limit or illuminate alcohol intake Patient verbalized understanding Follow-up with PCP On reevaluation, patient had symptomatic improvement. Patient is stable for discharge at this time. External notes reviewed. Test results and diagnostic imaging interpreted. All diagnostic findings, discharge care, education and instructions provided Follow-up with PCP in 2 to 3 days Patient verbalized understanding and agreed to treatment plan Vital signs stable, afebrile, no acute distress noted Patient ambulatory with strong steady gait Advised to return precautions for any new or worsening symptoms, return to ER immediately for re-evaluation Patient is aware that the purpose of this visit was for an acute medical emergency requiring emergent stabilization. Chronic conditions, including malignancies have not been ruled out. Patient is instructed to follow up with PCP as directed and discharge instructions for continued care and workup. If unable to arrange follow-up, patient is to return to the emergency department for reassessment. Patient (parent or legal guardian if applicable) was given verbal and written discharge instructions and acknowledges understanding. Time of 1ST Reevaluation: 14:55 Reevaluation 1ST: Improved Patient Education/Counseling: Diagnosis, Treatment Family Education/Counseling: Diagnosis, Treatment Departure 1 Departure Time of Disposition: 14:55 Impression: Primary Impression: Elevated blood pressure reading Disposition: HOME / SELF CARE / HOMELESS Condition: Stable Discharged With: Self Critical Care Note Critical Care Time?: No Stability Stability form required: No Heart Score Heart Score: Heart Score Response (Comments) Value History N/A 0 EKG N/A 0 Age N/A 0 Risk Factors N/A 0 Troponin N/A 0 Total 0 KRISTY STEVE NP Aug 12, 2024 13:30
--- NOTE | 2024-08-12 14:10 | DVH ---
EXAM: CT HEAD WITHOUT CONTRAST HISTORY: HTN COMPARISON: CT HEAD WITHOUT CONTRAST on DOS: 02/16/22 TECHNIQUE: Axial images of the head were obtained and reformatted in coronal and sagittal planes. All CT scans at this medical facility are performed using dose modulation techniques as appropriate t o a performed exam including the following: Automated exposure control was utilized; adjustment of th e MA and/or KV according to patient size; and use of iterative reconstruction technique. CT Dose: CTDI volume is 52.04 mGy. Dose-length product is 921.58 mGy*cm FINDINGS: There is no evidence of acute intracranial hemorrhage, mass, mass effect midline shift. There is no h ydrocephalus or extra-axial fluid collection. Lo-white matter differentiation is maintained.. The visualized paranasal sinuses and mastoid air cells are clear. The calvarium is intact. IMPRESSION: 1. No acute intracranial process. HS:Y
[2024-08-12 14:22] LABS: Basophils # (auto) 0.1 10 ^3/uL (0-0.2); Basophils % (auto) 0.6 % (0.0-2.0); Chloride 108 mmol/L (98-107); Eosinophils # (auto) 0 10 ^3/uL (0-0.8); Eosinophils % (auto) 0.3 % (0.0-7.0); Hematocrit 43.3 % (36.0-46.0); Hemoglobin 14.5 g/dL (12.2-16.2); Lymphocytes # (auto) 1.3 10 ^3/uL (0.4-5.4); Lymphocytes % (auto) 13.3 % (10.0-50.0); Mean Corpuscular Hgb Conc. 33.5 g/dL (32.0-36.0); Mean Corpuscular Volume 86.5 fL (80.0-100.0); Monocytes # (auto) 0.4 10 ^3/uL (0-1.3); Monocytes % (auto) 4.5 % (0.0-12.0); Neutrophils % (auto) 81.3 % (37.0-80.0); Platelet Count (auto) 192 10^3/uL (140-450); Potassium 3.8 mmol/L (3.5-5.1); Red Cell Distribution Width 14.8 % (11.8-14.3); Sodium 140 mmol/L (136-145); White Blood Cell 9.9 10^3/uL (4.4-10.8)
[2024-08-12 14:23] LABS: Anion Gap 3 (5-15); Calcium 9.6 mg/dL (8.7-10.4); Carbon Dioxide 29 mmol/L (20-31)
[2024-08-12 14:28] LABS: BUN/Creatinine Ratio 12.5 (10.0-20.0); Blood Urea Nitrogen 10 mg/dL (9-23); Glucose 114 mg/dL (74-106)
[2024-08-12 14:47] VITALS: BP 142/87; PULSE 82; RESP 16; TEMP 97.7; O2SAT 99
== END 2024-08-12 15:00 | disposition home or self-care (01) ==
LOC: EDBD 12:32 → ER 12:32
DX: I10 Essential (primary) hypertension (principal); R51.9 Headache, unspecified; K21.9 Gastro-esophageal reflux disease without esophagitis; E78.5 Hyperlipidemia, unspecified; Z98.890 Other specified postprocedural states; Z88.0 Allergy status to penicillin; Z79.899 Other long term (current) drug therapy; Z79.52 Long term (current) use of systemic steroids
CPT/HCPCS: 36415; 70450; 80048; 85025